=== PATIENT | female | born 1995 | race Caucasian/White ===

== ENCOUNTER 2025-02-03 13:18 | Emergency (ER) | payer MEDICAID ==
[~2025-02-03] VITALS: Ht 160 cm; Wt 59.0 kg
[2025-02-03 13:46] VITALS: O2SAT 95
[2025-02-03] MEDS: ACETAMINOPHEN 325MG TABLET PO ONE (14:37)
[2025-02-03] MEDS ORDERED: [UNRECOGNIZED DRUG - CODE] TP (14:54)
[2025-02-03] MEDS ORDERED: NIZOS TP (14:54)
[2025-02-03] MEDS ORDERED: METH4TAB95 MT (14:54)
[2025-02-03 15:04] VITALS: BP 102/82; PULSE 69; RESP 18; TEMP 36.8; O2SAT 98
== END 2025-02-03 15:20 | disposition home or self-care (01) ==
LOC: ER 13:18
DX: M25.561 Pain in right knee (principal); Z79.899 Other long term (current) drug therapy; Z98.890 Other specified postprocedural states
CPT/HCPCS: 73560; 99283

== ENCOUNTER 2025-02-28 12:13 | Emergency (ER) | payer MEDICAID ==
[~2025-02-28] VITALS: Ht 162.6 cm; Wt 60.0 kg
[~2025-02-28 12:13] MED LIST: METH4TAB95 MT; NIZOS TP; [UNRECOGNIZED DRUG - CODE] TP
[2025-02-28 12:35] VITALS: O2SAT 91
[2025-02-28 14:55] LABS: BASOPHILS % 0.4 % (0.0-2.0); EOSINOPHILS % 3.1 % (0.0-5.0); HEMATOCRIT. 37.6 % (36.0-48.0); HEMOGLOBIN. 12.0 g/dL (12.0-16.0); LYMPHOCYTES % 24.6 % (20.0-50.0); MEAN PLATELET VOLUME 11.0 fl (7.4-10.4); MONOCYTES % 12.4 % (2.0-8.0); NEUTROPHILS % 59.5 % (40.0-76.0); PLATELET 80 x1000/uL (130-400); RED BLOOD CELL COUNT 4.44 mill/uL (4.2-5.4); RED CELL DISTRIBUTION WIDTH 15.3 % (11.6-14.6)
[2025-02-28 15:09] LABS: CREATININE 0.5 mg/dL (0.6-1.0)
[2025-02-28 15:10] LABS: UREA NITROGEN BLOOD 6 mg/dL (9-23)
[2025-02-28 15:11] LABS: ASPARTATE AMINOTRANSFERASE 47 IU/L (<34)
[2025-02-28 15:12] LABS: BILIRUBIN DIRECT 0.4 mg/dL (<=3.0); BILIRUBIN TOTAL 1.1 mg/dL (0.1-1.0); PROTEIN TOTAL 7.1 g/dL (6.0-8.3)
[2025-02-28] MEDS ORDERED: CEPH500T MT (15:39)
[2025-02-28] MEDS ORDERED: TERB250T88 MT (15:39)
[2025-02-28 16:07] VITALS: BP 112/68; PULSE 72; RESP 16; TEMP 36.6; O2SAT 91
== END 2025-02-28 16:08 | disposition home or self-care (01) ==
LOC: ER 13:30
DX: L03.811 Cellulitis of head [any part, except face] (principal); B35.0 Tinea barbae and tinea capitis; J45.909 Unspecified asthma, uncomplicated; Z79.899 Other long term (current) drug therapy
CPT/HCPCS: 36415; 80048; 80076; 85025; 99283

== ENCOUNTER 2025-03-11 14:56 | Emergency (ER) | payer MEDICAID ==
[~2025-03-11] VITALS: Ht 162.6 cm; Wt 66.0 kg
[~2025-03-11 14:56] MED LIST changes: +CEPH500T MT; +TERB250T88 MT
[2025-03-11 15:01] VITALS: O2SAT 95
[2025-03-11 15:26] VITALS: BP 103/60; PULSE 71; RESP 18; TEMP 37.3; O2SAT 93
[2025-03-11 16:16] LABS: BASOPHILS % 0.8 % (0.0-2.0); EOSINOPHILS % 2.0 % (0.0-5.0); HEMATOCRIT. 36.9 % (36.0-48.0); HEMOGLOBIN. 12.0 g/dL (12.0-16.0); LYMPHOCYTES % 22.0 % (20.0-50.0); MEAN PLATELET VOLUME 11.1 fl (7.4-10.4); MONOCYTES % 9.6 % (2.0-8.0); NEUTROPHILS % 65.6 % (40.0-76.0); PLATELET 99 x1000/uL (130-400); RED BLOOD CELL COUNT 4.43 mill/uL (4.2-5.4); RED CELL DISTRIBUTION WIDTH 15.1 % (11.6-14.6)
[2025-03-11 16:29] LABS: CREATININE 0.5 mg/dL (0.6-1.0); UREA NITROGEN BLOOD < 5 mg/dL (9-23)
[2025-03-11 16:31] LABS: ASPARTATE AMINOTRANSFERASE 41 IU/L (<34); BILIRUBIN DIRECT 0.3 mg/dL (<=3.0); BILIRUBIN TOTAL 0.8 mg/dL (0.1-1.0); PROTEIN TOTAL 7.0 g/dL (6.0-8.3)
[2025-03-11 16:35] LABS: HCG SCREEN NEGATIVE
[2025-03-11 16:36] LABS: CLARITY URINE CLOUDY (CLEAR); COLOR URINE YELLOW (YELLOW); GLUCOSE URINE NEGATIVE (NEGATIVE); KETONES URINE NEGATIVE (NEGATIVE); LEUKOCYTE ESTERASE URINE NEGATIVE (NEGATIVE); NITRITE URINE NEGATIVE (NEGATIVE); OCCULT BLOOD URINE NEGATIVE (NEGATIVE); PH URINE 8.0 (4.5-8.0); PROTEIN URINE 1+ (NEGATIVE); SPECIFIC GRAVITY URINE 1.022 (1.005-1.030); UROBILINOGEN URINE 1.0 E.U./dL (0.2-1.0)
[2025-03-11 17:20] LABS: BACTERIA URINE 3+; RBC URINE 0-2 /hpf (0-2); SQUAMOUS EPITHELIAL CELL URINE 2+ /lpf (RARE/1+); WBC URINE 0-2 /hpf (0-2)
[2025-03-11] MEDS ORDERED: ONDANSETRON 4MG ODT PO ONE (17:45)
[2025-03-11] MEDS ORDERED: ONDA-239 PO (18:38)
[2025-03-11] MEDS ORDERED: AMOX500T2 MT (18:38)
== END 2025-03-11 18:24 | disposition home or self-care (01) ==
LOC: ER 14:56
DX: K29.70 Gastritis, unspecified, without bleeding (principal); H65.92 Unspecified nonsuppurative otitis media, left ear; D72.829 Elevated white blood cell count, unspecified; D75.839 Thrombocytosis, unspecified; J45.909 Unspecified asthma, uncomplicated; Z95.1 Presence of aortocoronary bypass graft; Z79.899 Other long term (current) drug therapy; Z98.890 Other specified postprocedural states
CPT/HCPCS: 99283; 80076; 80048; 81003; 81025; 84703; 83690; 85025; 36415; Q0162